=== PATIENT | female | born 1970 | race Hispanic/Latino ===

== ENCOUNTER 2020-05-13 18:40 | Emergency (ER) | payer OTHER ==
[~2020-05-13] VITALS: Ht 152.4 cm; Wt 65.8 kg
[2020-05-13] MEDS ORDERED: SODIUM CHLORIDE 0.9% 1000ML 1,000 ML IV STA (19:19)
--- NOTE | 2020-05-13 19:29 | Emergency Department Note ---
History of Present Illnes History of Present Illness Chief Complaint: Abdominal Complaints History of Present Illness This is a 49 year old female sent by Dr Huang Bustamante for BRBPR for 2 days , not bleeding today. no pain no other symptoms. She has been on Naproxen for DJD but stopped 2days ago . Arrival Mode: [employer] Agent Required: No Onset (how long ago): day(s) Radiation: Reports non-radiation Severity: moderate Timing of current episode: intermittent Progression: resolved Chronicity: new Relieving factors: none Exacerbating factors: none Associated symptoms: Reports denies other symptoms Treatments prior to arrival: none Past Medical/Family History Physician Review I have reviewed the patient's past medical and family history. Any updates have been documented here. Past Medical History Recent Fever: No Clinical Suspicion of Infectio: No New/Unexplained Change in Ment: No Past Medical History: Osteoarthritis Other Medical History: diverticular dz Other Surgery: colonoscopy Social History Smoking Cessation: Never Smoker Any Illegal Drug Use: No Physically hurt or threatened: No Family History Family history of heart diseas: No Other Any Pre-Existing Lines (PICC,: No Is patient up to date on immun: No Review of Systems Review of Systems Constitutional: Reports no symptoms EENTM: Reports no symptoms Cardiovascular: Reports no symptoms Respiratory: Reports no symptoms Gastrointestinal: Reports as per HPI, Reports abdominal pain Genitourinary: Reports no symptoms Musculoskeletal: Reports no symptoms Integumentary: Reports no symptoms Neurological: Reports no symptoms Psychological: Reports no symptoms Endocrine: Reports no symptoms Hematological/Lymphatic: Reports no symptoms Physical Exam Related Data Allergies: Coded Allergies: No Known Drug Allergies (Verified Allergy, Unknown, 05/13/20) Physical Exam CONSTITUTIONAL Constitutional: Present well-developed, Present well-nourished HENT HENT: Present normocephalic, Present atraumatic, Present oropharynx clear/moist, Present nose normal HENT L/R: Present left ext ear normal, Present right ext ear normal EYES Eyes: Reports PERRL, Reports conjunctivae normal NECK Neck: Present ROM normal PULMONARY Pulmonary: Present effort normal, Present breath sounds normal CARDIOVASCULAR Cardiovascular: Present regular rhythm, Present heart sounds normal, Present capillary refill normal, Present normal rate GASTROINTESTINAL Abdominal: Present soft, Present nontender, Present bowel sounds normal, Present other (restal exam. Small non thrombosed exteral hemorrhoid seen at 6 O'clock, no stool no blood in rectal vault) GENITOURINARY Genitourinary: Present exam deferred SKIN Skin: Present warm, Present dry MUSCULOSKELETAL Musculoskeletal: Present ROM normal NEUROLOGICAL Neurological: Present alert, Present oriented x 3, Present no gross motor or sensory deficits PSYCHOLOGICAL Psychological: Present mood/affect normal, Present judgement normal Results Laboratory Lab results reviewed: Yes Assessment & Plan Medical Decision Making MDM painless rectal bleeding, no actively bleeds Assessment & Plan Final Impression: (1) Lower GI hemorrhage (2) Diverticular disease Depart Disposition: HOME, SELF-CARE Physician Attestation Provider Attestation She has appt with Dr Bustamante the next day, she is not actively bleeding, Blood pressure is good, hgb normal, no admission needed at this time plus patient does not want come to hospital. MERARI POPE MD May 13, 2020 19:29
--- NOTE | 2020-05-13 19:55 | NUR ---
Assisted Dr. Rayo with pt. exam and hemmocult. Dr. Rayo was unable to retrieve a sample for the hemmocult. No bleeding noted.
[2020-05-13] MEDS ORDERED: PANTOPRAZOLE 40 MG 10ML VIAL IV ONE (20:00)
[2020-05-13] MEDS ORDERED: SODIUM CHLORIDE 0.9% 1000ML 1,000 ML ONE (20:01)
[2020-05-13] MEDS ORDERED: PANTOPRAZOLE 40 MG 10ML VIAL ONE (20:01)
[2020-05-13] MEDS ORDERED: SODIUM CHLORIDE 0.9% 50ML 50 ML ONE (20:03)
[2020-05-13] MEDS ORDERED: IOPAMIDOL 370 MG/ML 200 ML INFUS..BTL INJ ONE (20:04)
--- NOTE | 2020-05-13 20:45 | NUR ---
PT RETURNED FROM CT TO RM 3
--- NOTE | 2020-05-13 21:27 | Diagnostic Imaging Report ---
EXAMINATION: CT of the abdomen and pelvis with contrast. TECHNIQUE: Spiral CT images of the abdomen and pelvis were performed from the lung bases to the lesser trochanters after the intravenous administration of 100 cc of Isovue-370 and the oral administration of water. Coronal and sagittal reformatted images were obtained. COMPARISON: None. CLINICAL HISTORY:Rectal bleeding for 3 days DISCUSSION: ABDOMEN/PELVIS: LOWER THORAX:Unremarkable. HEPATOBILIARY: Decreased attenuation of the hepatic parenchyma compared to the spleen. No focal lesions. No intra or extrahepatic biliary ductal dilation. GALLBLADDER: Cholecystectomy clips. SPLEEN: No splenomegaly. PANCREAS: No focal masses or ductal dilatation. ADRENALS: No adrenal nodules. KIDNEYS/URETERS: No hydronephrosis, stones, or solid mass lesions. PELVIC ORGANS/BLADDER: Bladder and uterus are unremarkable. No adnexal masses. PERITONEUM/RETROPERITONEUM: No free air or fluid. LYMPH NODES: No intra-abdominal, retroperitoneal, pelvic or inguinal lymphadenopathy. VESSELS: The celiac trunk,superior and inferior mesenteric and bilateral renal arteries are patent The portal, superior mesenteric and splenic veins are patent. Minimal atherosclerotic calcification of the distal abdominal aorta. GI TRACT: No bowel dilation or evidence of obstruction. Descending and sigmoid colon diverticulosis without surrounding inflammatory changes to suggest diverticulitis. No wall thickening or focal intraluminal mass. BONES AND SOFT TISSUE: No aggressive lytic or suspicious focal sclerotic lesion. Small fat-containing umbilical hernia. IMPRESSION: 1. No bowel dilation or evidence of obstruction. Specifically, no focal wall thickening or intraluminal mass in the sigmoid or rectum. Recommend direct visualization with colonoscopy for further evaluation. 2. Descending and sigmoid colon diverticulosis, without diverticulitis. 3. Hepatic steatosis. Signed by: Dr. López Stanford M.D. on 05/13/2020 9:24 PM
[2020-05-13 22:10] VITALS: BP 169/99
[2020-05-17] MEDS ORDERED: NAPROSYN500 MG PO (09:51)
[2020-05-17] MEDS ORDERED: GUMMI BEAR MUL1 EACH PO (09:51)
== END 2020-05-13 22:10 | disposition home or self-care (01) ==
LOC: FSED 19:00
DX: K57.30 Diverticulosis of large intestine without perforation or abscess without bleeding (principal); K76.0 Fatty (change of) liver, not elsewhere classified
CPT/HCPCS: 74177; 80053; 81003; 85025; 85610; 99284; C9113; J7030; Q9967

== ENCOUNTER → 2020-05-21 | Day surgery (SDC) | payer OTHER ==
[~2020-05-21] MED LIST: ETOMIDATE 2 MG/ML 10 ML INJ IV ONE; GUMMI BEAR MUL1 EACH PO; HYOSCYAMINE 0.125 MG TAB ONE; LIDOCAINE HCL 2% LOCAL INJ 5 ML SDV VIAL INJ ONE; NAPROSYN500 MG PO; PROPOFOL IV EMULSION 10 MG/ML 20 ML VIAL ONE
[2020-05-21 13:00] VITALS: BP 158/94
--- NOTE | 2020-05-21 13:14 | Operative Report ---
DATE OF PROCEDURE: 05/21/2020 SURGEON: Luis Bustamante MD PROCEDURES: EGD with biopsies and colonoscopy with polypectomy and hemoclipping. INDICATIONS FOR EGD: Acid reflux, bloating. INDICATIONS FOR COLONOSCOPY: Colorectal cancer screening, history of rectal bleeding. MEDICATIONS: The patient was done under MAC, please see anesthesiologist's note. PROCEDURE IN DETAIL: With the patient in the left lateral decubitus position, a flexible fiberoptic Olympus gastroscope was introduced into the esophagus under direct visualization without any difficulty. There was some patchy erythema noted in distal esophagus. The scope was then advanced with ease into the stomach. Mucosa overlying the antrum and the body revealed some patchy erythema and low-grade edema, and biopsies were obtained and sent to stain for H. pylori. A minute submucosal nodule was noted in the upper body along the anterior wall that was biopsied. Pylorus was of normal contour and shape, was intubated with ease and the scope was advanced all the way to the second portion of the duodenum. Biopsies were obtained from the proximal second portion and duodenal bulb to rule out sprue. Also, there was a minute submucosal nodule noted in the duodenal bulb that was biopsied. The scope was then withdrawn back into the stomach and retroflexed, mucosa overlying the fundus and the cardia appeared to be within normal limits. The scope was then straightened out, it was subsequently withdrawn, and the patient tolerated the procedure well. IMPRESSION: 1. Distal esophagitis, mild. 2. Gastritis, biopsied, biopsies sent to stain for Helicobacter pylori. 3. Submucosal nodule, upper body anterior wall, biopsied. 4. Rule out sprue. 5. Duodenal bulb nodule, biopsied. PLAN: Follow up histology. Initiate Protonix 40 mg one p.o. q.a.m. before meals. The patient was then turned around and after adequate lubrication of the anal canal, a flexible fiberoptic Olympus colonoscope was inserted into the rectum with ease and advanced all the way to the cecum. It was then withdrawn slowly. Mucosa overlying the cecum appeared to be within normal limits. Of note, diverticular disease was noted throughout the colon. A single diverticulum in the proximal transverse colon was noted with stigmata of recent hemorrhage. This was hemoclipped. The rest of the transverse other than for diverticular disease appeared to be within normal limits. A minute polyp was hot biopsied from the descending colon and site was hemoclipped x1. The sigmoid colon other than for diverticulosis appeared to be within normal limits. The scope was then retroflexed into the distal rectum and small internal hemorrhoids were noted, none of which was actively bleeding. The scope was then straightened out, it was subsequently withdrawn, and the patient tolerated the procedure well. IMPRESSION: 1. Pandiverticulosis. 2. Diverticulum, proximal transverse colon, with stigmata of recent hemorrhage. Hemoclipped. 3. Descending colon polyp, hot biopsied and site hemoclipped x1. 4. Internal hemorrhoids, none actively bleeding. PLAN: Follow up histology. Initiate high-fiber, low-fat diet. Initiate high-fiber supplement. The patient might benefit from a followup colonoscopy in 5 years. Luis Bustamante MD [facility] [place] /[id number]
== END | disposition home or self-care (01) ==
LOC: OR 08:45
PROVIDERS: ATTEND Internal Medicine Gastroenterology
DX: K57.31 Diverticulosis of large intestine without perforation or abscess with bleeding (principal); K63.5 Polyp of colon; K64.8 Other hemorrhoids; K20.9 Esophagitis, unspecified; K29.70 Gastritis, unspecified, without bleeding; K31.9 Disease of stomach and duodenum, unspecified; K21.9 Gastro-esophageal reflux disease without esophagitis; Z01.810 Encounter for preprocedural cardiovascular examination; Z01.812 Encounter for preprocedural laboratory examination; Z11.59 Encounter for screening for other viral diseases; K29.50 Unspecified chronic gastritis without bleeding
CPT/HCPCS: 43239; 45384; 93005; J2001; J2704; U0002; 45378

== ENCOUNTER → 2021-01-18 | Outpatient (CLI) | payer OTHER ==
[~2021-01-18] MED LIST changes: +COVID-19 VACC, MRNA(MODERNA)/PF 100 MCG/0.5 ML VIAL IM ONE; -ETOMIDATE 2 MG/ML 10 ML INJ IV ONE; -HYOSCYAMINE 0.125 MG TAB ONE; -LIDOCAINE HCL 2% LOCAL INJ 5 ML SDV VIAL INJ ONE; -PROPOFOL IV EMULSION 10 MG/ML 20 ML VIAL ONE
== END | disposition home or self-care (01) ==
LOC: VACCPMC 17:19
DX: Z23 Encounter for immunization (principal); Z20.822 Contact with and (suspected) exposure to COVID-19
CPT/HCPCS: 0011A; 91301

== ENCOUNTER → 2021-02-14 | Outpatient (CLI) | payer OTHER | END | disposition home or self-care (01) | LOC: VACCPMC 11:26 | DX: Z23 Encounter for immunization (principal); Z20.822 Contact with and (suspected) exposure to COVID-19 | CPT/HCPCS: 91301 ==

== ENCOUNTER → 2022-08-25 | Day surgery (SDC) | payer OTHER ==
[~2022-08-25] MED LIST changes: +ASPIRIN81 MG PO; -COVID-19 VACC, MRNA(MODERNA)/PF 100 MCG/0.5 ML VIAL IM ONE; +LIDOCAINE HCL 2% LOCAL INJ 5 ML SDV VIAL INJ ONE; +MIDAZOLAM HCL 2 MG/2 ML VIAL ONE; +POVIDONE IODINE 0.05% 0.05 % ML PO ONE; +PROPOFOL IV EMULSION 10 MG/ML 50 ML VIAL IV ONE; +PROTONIX20 MG PO
[2022-08-25 14:45] VITALS: BP 127/88
== END | disposition home or self-care (01) ==
LOC: OR 10:51
PROVIDERS: ATTEND Internal Medicine Gastroenterology
DX: K29.70 Gastritis, unspecified, without bleeding (principal); Z86.010 Personal history of colon polyps; K31.7 Polyp of stomach and duodenum; K20.90 Esophagitis, unspecified without bleeding; K44.9 Diaphragmatic hernia without obstruction or gangrene; K57.30 Diverticulosis of large intestine without perforation or abscess without bleeding; K21.9 Gastro-esophageal reflux disease without esophagitis; K62.5 Hemorrhage of anus and rectum; K64.8 Other hemorrhoids; R03.0 Elevated blood-pressure reading, without diagnosis of hypertension; Z01.810 Encounter for preprocedural cardiovascular examination; Z79.82 Long term (current) use of aspirin; Z68.27 Body mass index [BMI] 27.0-27.9, adult; Z80.0 Family history of malignant neoplasm of digestive organs
CPT/HCPCS: 43239; 45378; 93005; C9113; J2001; J2250; J2704